=== PATIENT | male | born 1960 | race Two or more races ===

== ENCOUNTER 2020-08-06 11:22 | Emergency (ER) | payer MEDICAID, OTHER ==
[~2020-08-06] VITALS: Ht 167.6 cm; Wt 86.2 kg
[2020-08-06 12:58] VITALS: BP 174/93
[2020-08-06] MEDS ORDERED: HYDROcodone-ACET 5/325MG TAB PO ONE (13:45)
[2020-08-06] MEDS ORDERED: KETOROLAC TROMETH 60MG/2ML VIAL IM ONE (13:45)
== END 2020-08-06 13:59 | disposition home or self-care (01) ==
LOC: ER 11:22
DX: S39.012A Strain of muscle, fascia and tendon of lower back, initial encounter (principal); M51.37 Other intervertebral disc degeneration, lumbosacral region; M54.16 Radiculopathy, lumbar region; G89.29 Other chronic pain; I10 Essential (primary) hypertension; X58.XXXA Exposure to other specified factors, initial encounter; Y93.89 Activity, other specified; Y92.89 Other specified places as the place of occurrence of the external cause; Y99.8 Other external cause status
CPT/HCPCS: 72100; 93005; 96372; 99283; J1885

== ENCOUNTER 2024-05-26 08:26 | Inpatient (IN) | payer MEDICAID ==
[~2024-05-26] VITALS: Ht 167.6 cm; Wt 96.2 kg
[2024-05-26] MEDS: cloNIDine HCL 0.1 MG TAB PO ONE (08:48)
--- NOTE | 2024-05-26 09:06 | DVH ---
EXAM: CT HEAD WITHOUT CONTRAST INDICATION: dizziness TECHNIQUE: CT of the head without intravenous contrast. Radiation Dose : 1. Head: CT Dose: CTDI volume is 55 mGy. Dose-length product is 885 mGy*cm The dose indicators for CT are the volume Computed Tomography (CT) Dose Index (CTDIvol) and the Dose Length Product (DLP), and are measured in units of mGy and mGy-cm, respectively. These indicators are not patient dose, but values generated from the CT scanner acquisition factors. The report includes radiation exposure data for exposures received during this examination. COMPARISON: None FINDINGS: There is no evidence of acute intracranial hemorrhage, extra-axial collection, mass effect, midline s hift, herniation or hydrocephalus. The ventricles, sulci and cisterns are age appropriate. The carey-white differentiation is intact. Patchy periventricular and subcortical white matter hypoattenuation is nonspecific but may be related to small vessel ischemic disease. The visualized paranasal sinuses and mastoid air cells are clear. The surrounding soft tissues and osseous structures are unremarkable. IMPRESSION: No acute intracranial abnormality. Radiation optimization: All CT scans at this facility use at least one of these dose optimization chad hniques: automated exposure control mA and/or kV adjustment per patient size (includes targeted exam s where dose is matched to clinical indication) or iterative reconstruction.
--- NOTE | 2024-05-26 09:19 | ED.PDOC ---
HPI Comments 63 y/o M, with PMHX of HTN presents to the ED for CC of high blood pressure . Patient states, that he has been experiencing high blood pressure readings with associated left arm numbness, dizziness, and headache since 0300 this morning (05/26/24). Patient relays, that he has been non-compliant with blood pressure medications for greater than a year due to adverse affects. Patient comments on, taking x3 Aspirin to try an counteract symptoms; provided no relief. Patient's b lood pressure upon arrival to the ED read at 191/97. Patient denies chest pain, palpations, shortness of breath, or fatigue. No other associated symptoms, modifiers, recent injuries or sick contacts at this time. Chief Complaint: High Blood Pressure Time Seen by MD: 08:20 Primary Care Provider: none Reviewed Notes: Nurses Notes, Medications, Allergies Allergies: Coded Allergies: No Known Drug Allergy (Verified Allergy, Unknown, 08/06/20) Information Source: Patient Mode of Arrival: Ambulatory Severity: Moderate Timing: Days Duration: Since onset Prehospital treatment: None Onset: At Rest Cardiac Risk Factors: HTN PE Risk Factors: None History of: None Modifying Factors: Nothing Associated Signs and Symptoms: None Past Medical History PAST MEDICAL HISTORY: HTN Surgical History: Denies all surgeries Family History Family History: Reviewed,noncontributory to illness Social History Smoker: Non-Smoker Alcohol: Unknown Drugs: Unknown Lives In: Home Constitutional: denies: chills, diaphoresis, fatigue, fever, malaise, sweats, weakness, others EENTM: denies: blurred vision, double vision, ear bleeding, ear discharge, ear drainage, ear pain, ear ringing, eye pain, eye redness, hearing loss, mouth pain, mouth swelling, nasal discharge, nose bleeding, nose congestion, nose pain, photophobia, tearing, throat pain, throat swelling, voice changes, others Respiratory: denies: cough, hemoptysis, orthopnea, SOB at rest, shortness of breath, SOB with excertion, stridor, wheezing, others Cardiovascular: reports: left arm pain; denies: chest pain, dizzy spells, diaphoresis, Dyspnea on exertion, edema, irregular heart beat, lightheadedness, palpitations, PND, syncope, others Gastrointestinal: denies: abdomen distended, abdominal pain, blood streaked bowels, constipated, diarrhea, dysphagia, difficulty swallowing, hematemesis, melena, nausea, poor appetite, poor fluid intake, rectal bleeding, rectal pain, vomiting, others Genitourinary: denies: burning, dysuria, flank pain, frequency, hematuria, incontinence, penile discharge, penile sore, pain, testicle pain, testicle swelling, urgency, others Neurological: reports: dizziness, headache; denies: fainting, left sided numbness, left sided weakness, numbness, paresthesia, pre-existing deficit, right sided numbness, right sided weakness, seizure, speech problems, tingling, tremors, weakness, others Musculoskeletal: denies: back pain, gout, joint pain, joint swelling, muscle pain, muscle stiffness, neck pain, others Integumetry: denies: bruises, change in color, change in hair/nails, dryness, laceration, lesions, lumps, rash, wounds, others Allergic/Immunocompromised: denies: Difficulty Healing, Frequent Infections, Hives, Itching, others Hematologic/Lymphatic: denies: anemia, blood clots, easy bleeding, easy bruising, swollen glands, others Endocrine: denies: excessive hunger, excessive sweating, excessive thirst, excessive urination, flushing, intolerance to cold, intolerance to heat, unexplained weight gain, unexplained weight loss, others Psychiatric: denies: anxiety, bipolar disorder, depression, hopeless, panic disorder, schizophrenia, sleepless, suicidal, others All Other Systems: Reviewed and Negative Physical Exam General Appearance: Moderate Distress HEENT: Normal ENT Inspection, Pharynx Normal, TMs Normal Neck: Full Range of Motion, Non-Tender, Normal, Normal Inspection Respiratory: Chest Non-Tender, Lungs Clear, No Accessory Muscle Use, No Respiratory Distress, Normal Breath Sounds Cardiovascular: No Edema, No JVD, No Murmur, No Gallop, Normal Peripheral Pulses, Regular Rate/Rhythm Breast Exam: Deferred Gastrointestinal: No Organomegaly, Non Tender, No Pulsatile Mass, Normal Bowel Sounds, Soft Genitalia: Deferred Pelvic: Deferred Rectal: Deferred Extremities: No calf tenderness, Normal capillary refill, Normal inspection, Normal range of motion, Non-tender, No pedal edema Musculoskeletal : Apperance: Normal Neurologic: Alert, corrective and manual arts therapist II-XII nml as Tested, No Motor Deficits, Normal Affect, Normal Mood, No Sensory Deficits Cerebellar Function: Normal Reflexes: Normal Skin: Dry, Normal Color, Warm Peripheral Pulses: 3+ Radial (R), 3+ Radial (L) Lymphatic: No Adenopathy Was a procedure done? Was a procedure done?: No CP Differential Dx Differential Diagnosis: A-fib, A-Flutter, Angina, Anxiety / Panic Attack, Atrial Dysrhythmia, Electrolyte Disorder Differential Diagnosis: HTN Essential, HTN Accelerated X-Ray, Labs, Meds, VS Vital Signs Date Time Temp Pulse Resp B/P (MAP) Pulse Ox O2 Delivery O2 Flow Rate FiO2 05/26/24 09:50 140/96 05/26/24 09:47 56 18 95 Room Air* 0 21 05/26/24 09:47 98.1 56 18 140/96 (111) 95 98.1 05/26/24 08:53 54 05/26/24 08:48 213/105 05/26/24 08:38 99.1 55 19 213/105 (141) 98 99.1 Lab Test 05/26/24 09:48 05/26/24 08:58 Range/Units Troponin I High Sensitivity 7 8 </=54 ng/L White Blood Count 6.3 4.4-10.8 10^3/uL Red Blood Count 5.31 4.5-5.90 10^6/uL Hemoglobin 16.3 13.5-17.5 g/dL Hematocrit 47.8 41.0-53.0 % Mean Corpuscular Volume 89.9 80.0-100.0 fL Mean Corpuscular Hemoglobin 30.6 28.0-32.0 pg Mean Corpuscular Hemoglobin Concent 34.0 32.0-36.0 g/dL Red Cell Distribution Width 13.4 11.8-14.3 % Platelet Count 234 140-450 10^3/uL Mean Platelet Volume 8.5 6.9-10.8 fL Neutrophils (%) (Auto) 63.5 37.0-80.0 % Lymphocytes (%) (Auto) 27.8 10.0-50.0 % Monocytes (%) (Auto) 6.1 0.0-12.0 % Eosinophils (%) (Auto) 2.1 0.0-7.0 % Basophils (%) (Auto) 0.5 0.0-2.0 % Neutrophils # (Auto) 4.0 1.6-8.6 10 ^3/uL Lymphocytes # (Auto) 1.7 0.4-5.4 10 ^3/uL Monocytes # (Auto) 0.4 0-1.3 10 ^3/uL Eosinophils # (Auto) 0.1 0-0.8 10 ^3/uL Basophils # (Auto) 0 0-0.2 10 ^3/uL Nucleated Red Blood Cells 0.1 % Sodium Level 142 136-145 mmol/L Potassium Level 4.0 3.5-5.1 mmol/L Chloride Level 105 98-107 mmol/L Carbon Dioxide Level 28 20-31 mmol/L Anion Gap 9 5-15 Blood Urea Nitrogen 13 9-23 mg/dL Creatinine 1.03 0.700-1.30 mg/dL Glomerular Filtration Rate Calc 82 >90 mL/min BUN/Creatinine Ratio 12.6 10.0-20.0 Serum Glucose 124 H 74-106 mg/dL Calcium Level 9.8 8.7-10.4 mg/dL Current Medications Medications (Trade) Dose Ordered Sig/Crystal Route Start Time Stop Time Status Last Admin Clonidine HCl (Catapres Tablet) 0.2 mg ONCE ONCE PO 05/26/24 08:45 05/26/24 08:46 DC 05/26/24 08:48 [place] [id number] Ph: [phone] DIAGNOSTIC IMAGING Diagnostic Imaging Report : [id number] Signed PATIENT: JENNA LIMA ACCT: [id number] UNIT: [id number] : 1960 LOC: ER ROOM / BED: / AGE / SEX: 63 / M ADM STATUS: REG ER SERVICE [id number] ORDERING PHYSICIAN: AUGUSTUS COHEN MD PROCEDURE(s): HWOCT - HEAD WITHOUT CONTRAST REASON: dizziness ORDER NUMBER(s): [id number], ACCESSION NUMBER(s): [id number] EXAM: CT HEAD WITHOUT CONTRAST INDICATION: dizziness TECHNIQUE: CT of the head without intravenous contrast. Radiation Dose : 1. Head: CT Dose: CTDI volume is 55 mGy. Dose-length product is 885 mGy*cm The dose indicators for CT are the volume Computed Tomography (CT) Dose Index (CTDIvol) and the Dose Length Product (DLP), and are measured in units of mGy and mGy-cm, respectively. These indicators are not patient dose, but values generated from the CT scanner acquisition factors. The report includes radiation exposure data for exposures received during this examination. COMPARISON: None FINDINGS: There is no evidence of acute intracranial hemorrhage, extra-axial collection, mass effect, midline shift, herniation or hydrocephalus. The ventricles, sulci and cisterns are age appropriate. The carey-white differentiation is intact. Patchy periventricular and subcortical white matter hypoattenuation is nonspecific but may be related to small vessel ischemic disease. The visualized paranasal sinuses and mastoid air cells are clear. The surrounding soft tissues and osseous structures are unremarkable. IMPRESSION: No acute intracranial abnormality. Radiation optimization: All CT scans at this facility use at least one of these dose optimization techniques: automated exposure control mA and/or kV adjustment per patient size (includes targeted exams where dose is matched to clinical indication) or iterative reconstruction. ATED BY: TRIP BANKS MD DICTATED DATE/TIME: 05/26/24903 SIGNED BY: TRIP BANKS MD SIGNED DATE/TIME: 05/26/24903 CC: [place] [address] Ph: [phone] DIAGNOSTIC IMAGING Diagnostic Imaging Report : [id number] Signed PATIENT: JENNA LIMA ACCT: [id number] UNIT: [id number] : 1960 LOC: ER ROOM / BED: / AGE / SEX: 63 / M ADM STATUS: REG ER SERVICE 0851 ORDERING PHYSICIAN: AUGUSTUS COHEN MD PROCEDURE(s): CXRP - CHEST PORTABLE REASON: sob ORDER NUMBER(s): [id number], ACCESSION NUMBER(s): [id number] CHEST RADIOGRAPH Indication: sob Technique: Single frontal view of the chest was obtained COMPARISON: None FINDINGS: Lines and Tubes: None Lungs: Clear Pleura: No effusion. No pneumothorax. Cardiomediastinal contours: Unremarkable Bones: Unremarkable IMPRESSION: No acute disease. ATED BY: TRIP BANKS MD DICTATED DATE/TIME: 05/26/24915 SIGNED BY: TRIP BANKS MD SIGNED DATE/TIME: 05/26/24915 CC: [place] [address] Ph: [phone] DIAGNOSTIC IMAGING Diagnostic Imaging Report : [id number] Signed PATIENT: JENNA LIMA ACCT: [id number] UNIT: [id number] : 1960 LOC: ER ROOM / BED: / AGE / SEX: 63 / M ADM STATUS: REG ER SERVICE 8 ORDERING PHYSICIAN: AUGUSTUS COHEN MD PROCEDURE(s): HWOCT - HEAD WITHOUT CONTRAST REASON: dizziness ORDER NUMBER(s): [id number], ACCESSION NUMBER(s): [id number] EXAM: CT HEAD WITHOUT CONTRAST INDICATION: dizziness TECHNIQUE: CT of the head without intravenous contrast. Radiation Dose : 1. Head: CT Dose: CTDI volume is 55 mGy. Dose-length product is 885 mGy*cm The dose indicators for CT are the volume Computed Tomography (CT) Dose Index (CTDIvol) and the Dose Length Product (DLP), and are measured in units of mGy and mGy-cm, respectively. These indicators are not patient dose, but values generated from the CT scanner acquisition factors. The report includes radiation exposure data for exposures received during this examination. COMPARISON: None FINDINGS: There is no evidence of acute intracranial hemorrhage, extra-axial collection, mass effect, midline shift, herniation or hydrocephalus. The ventricles, sulci and cisterns are age appropriate. The carey-white differentiation is intact. Patchy periventricular and subcortical white matter hypoattenuation is nonspecific but may be related to small vessel ischemic disease. The visualized paranasal sinuses and mastoid air cells are clear. The surrounding soft tissues and osseous structures are unremarkable. IMPRESSION: No acute intracranial abnormality. Radiation optimization: All CT scans at this facility use at least one of these dose optimization techniques: automated exposure control mA and/or kV adjustment per patient size (includes targeted exams where dose is matched to clinical indication) or iterative reconstruction. ATED BY: TRIP BANKS MD DICTATED DATE/TIME: 05/26/24903 SIGNED BY: TRIP BANKS MD SIGNED DATE/TIME: 05/26/24903 CC: Patient alert. Complaining of headache. Vitals stable. Answering questions. Possible TIA. CT scan of the head reviewed does not show any acute changes. Continues to have symptoms. Possibly need MRI. Reviewed his history. Explained to the patient Continue cardiac monitoring. Blood pressure elevated. Was given clonidine. WBC within normal limits. Hemoglobin within normal limits. EKG reviewed does not show any acute process. Cardiac marker within normal limits. Time of 1ST Reevaluation: 08:50 Reevaluation 1ST: Unchanged Patient Education/Counseling: Diagnosis, Treatment Family Education/Counseling: No Family Present Departure 1 Departure Time of Disposition: 11:09 Impression: Primary Impression: Hypertensive emergency Additional Impression: TIA (transient ischemic attack) Disposition: ADMITTED INPATIENT Admit to: Med Surg Condition: Guarded Critical Care Note Critical Care Time?: No Stability Stability form required: No Heart Score Heart Score: Heart Score Response (Comments) Value History Slightly Suspicious 0 EKG Normal 0 Age 45-64 1 Risk Factors >3 or Hx ASHD 2 Troponin Normal limit 0 Total 3 I personally scribed for AUGUSTUS COHEN MD ([email or web address]) on 05/26/24 at 09:19. Electronically submitted by Maggi Perry ([email or web address]). I personally scribed for AUGUSTUS COHEN MD ([email or web address]) on 05/26/24 at 09:19. Electronically submitted by Maggi Perry ([email or web address]). I personally scribed for AUGUSTUS COHEN MD ([email or web address]) on 05/26/24 at 09:20. Electronically submitted by Maggi Perry ([email or web address]). I personally scribed for AUGUSTUS COHEN MD ([email or web address]) on 05/26/24 at 10:19. Electronically submitted by Maggi Perry ([email or web address]). AUGUSTUS COHEN MD May 26, 2024 09:19
[2024-05-26 09:26] LABS: Basophils # (auto) 0 10 ^3/uL (0-0.2); Basophils % (auto) 0.5 % (0.0-2.0); Eosinophils # (auto) 0.1 10 ^3/uL (0-0.8); Eosinophils % (auto) 2.1 % (0.0-7.0); Hematocrit 47.8 % (41.0-53.0); Hemoglobin 16.3 g/dL (13.5-17.5); Lymphocytes # (auto) 1.7 10 ^3/uL (0.4-5.4); Lymphocytes % (auto) 27.8 % (10.0-50.0); Mean Corpuscular Hemoglobin 30.6 pg (28.0-32.0); Mean Corpuscular Volume 89.9 fL (80.0-100.0); Monocytes # (auto) 0.4 10 ^3/uL (0-1.3); Monocytes % (auto) 6.1 % (0.0-12.0); Neutrophils % (auto) 63.5 % (37.0-80.0); Nucleated Red Blood Cells % 0.1 %; Platelet Count (auto) 234 10^3/uL (140-450); Red Blood Cells 5.31 10^6/uL (4.5-5.90); Red Cell Distribution Width 13.4 % (11.8-14.3); White Blood Cell 6.3 10^3/uL (4.4-10.8)
[2024-05-26 09:29] LABS: Chloride 105 mmol/L (98-107); Sodium 142 mmol/L (136-145)
[2024-05-26 09:30] LABS: Anion Gap 9 (5-15); Carbon Dioxide 28 mmol/L (20-31)
[2024-05-26 09:31] LABS: Calcium 9.8 mg/dL (8.7-10.4)
[2024-05-26 09:35] LABS: BUN/Creatinine Ratio 12.6 (10.0-20.0); Blood Urea Nitrogen 13 mg/dL (9-23)
[2024-05-26 09:36] LABS: Glucose 124 mg/dL (74-106)
[2024-05-26 09:47] VITALS: PULSE 56; RESP 18; O2SAT 95
--- NOTE | 2024-05-26 11:58 | DVHHP2 ---
History of Present Illness Reason for Visit: Hypertension History of Present Illness Juan Diego Garza is a 63-year-old male with past medical history of hypertension who has not been taking any medications for about a year. Patient states he does take his blood pressure at times and today he noticed it was in the 200s prompting him to come to the hospital. He states he does have a primary care provider, but that he has not been in to see them in a couple years. Patient was given an antihypertensive from the ER, he states it has made him sleepy. I explained that is normal, and that his body will need to adjust to having a safer more normal blood pressure. Cardiovascular: HTN Past Surgical History: Appendectomy Family History: None Smoke: No ALCOHOL: none Drugs: None Lives: with Family Domestic Violence: Neg Review of Systems Constitutional: No: Fever, Chills, Sweats, Weakness, Malaise, Other Eyes: No: Pain, Vision change, Conjunctivae inflammation, Eyelid inflammation, Other, Redness ENT: No: Ear pain, Ear discharge, Nose pain, Nose discharge, Nose congestion, Mouth pain, Mouth swelling, Throat pain, Throat swelling, Other Respiratory: No: Cough, Dry, Shortness of breath, SOB with excertion, Wheezing, Hemoptysis, Pleuritic Pain, Sputum, Wheezing, Other Cardiovascular: Other (Hypertension); No: Chest Pain, Palpitations, Orthopnea, Paroxysmal Noc. Dyspnea, Edema, Lt Headedness Gastrointestinal: No: Nausea, Vomiting, Abdominal Pain, Diarrhea, Constipation, Melena, Hematochezia, Other Genitourinary: No Dysuria, No Frequency, No Incontinence, No Hematuria, No Retention, No Other Musculoskeletal: No: other, neck pain, shoulder pain, arm pain, back pain, hand pain, leg pain, foot pain Skin: No: Rash, Lesions, Jaundice, Bruising, Other Neurological: No: Weakness, Numbness, Incoordination, Change in speech, Confusion, Seizures, Other Allergies: Coded Allergies: No Known Drug Allergy (Verified Allergy, Unknown, 08/06/20) Exam Vital Signs Vital Signs Date Time Temp Pulse Resp B/P (MAP) Pulse Ox O2 Delivery O2 Flow Rate FiO2 05/26/24 09:50 140/96 05/26/24 09:47 56 18 95 Room Air* 0 21 05/26/24 09:47 98.1 98.1 General Appearance: Alert, Oriented X3, Cooperative, mild distress HEENT: Atraumatic, PERRLA Respiratory: Clear to auscultation, Normal air movement Cardiovascular: Regular rate, Normal S1, Normal S2, No murmurs Abdominal: Normal bowel sounds, Soft, No tenderness, No hepatospenomegaly Extremities: No clubbing, No cyanosis, No edema, Normal pulses, No tenderness/swelling Skin: No rashes, No breakdown, No significant lesion Neuro: Normal gait, Normal speech, Strength at 5/5 X4 ext, Normal tone Psych/Mental Status: Mental status NL, Mood NL Labs/Xrays Labs Test 05/26/24 09:48 05/26/24 08:58 Range/Units Troponin I High Sensitivity 7 </=54 ng/L White Blood Count 6.3 4.4-10.8 10^3/uL Red Blood Count 5.31 4.5-5.90 10^6/uL Hemoglobin 16.3 13.5-17.5 g/dL Hematocrit 47.8 41.0-53.0 % Mean Corpuscular Volume 89.9 80.0-100.0 fL Mean Corpuscular Hemoglobin 30.6 28.0-32.0 pg Mean Corpuscular Hemoglobin Concent 34.0 32.0-36.0 g/dL Red Cell Distribution Width 13.4 11.8-14.3 % Platelet Count 234 140-450 10^3/uL Mean Platelet Volume 8.5 6.9-10.8 fL Neutrophils (%) (Auto) 63.5 37.0-80.0 % Lymphocytes (%) (Auto) 27.8 10.0-50.0 % Monocytes (%) (Auto) 6.1 0.0-12.0 % Eosinophils (%) (Auto) 2.1 0.0-7.0 % Basophils (%) (Auto) 0.5 0.0-2.0 % Neutrophils # (Auto) 4.0 1.6-8.6 10 ^3/uL Lymphocytes # (Auto) 1.7 0.4-5.4 10 ^3/uL Monocytes # (Auto) 0.4 0-1.3 10 ^3/uL Eosinophils # (Auto) 0.1 0-0.8 10 ^3/uL Basophils # (Auto) 0 0-0.2 10 ^3/uL Nucleated Red Blood Cells 0.1 % Sodium Level 142 136-145 mmol/L Potassium Level 4.0 3.5-5.1 mmol/L Chloride Level 105 98-107 mmol/L Carbon Dioxide Level 28 20-31 mmol/L Anion Gap 9 5-15 Blood Urea Nitrogen 13 9-23 mg/dL Creatinine 1.03 0.700-1.30 mg/dL Glomerular Filtration Rate Calc 82 >90 mL/min BUN/Creatinine Ratio 12.6 10.0-20.0 Serum Glucose 124 H 74-106 mg/dL Calcium Level 9.8 8.7-10.4 mg/dL EXAM: CT HEAD WITHOUT CONTRAST FINDINGS: There is no evidence of acute intracranial hemorrhage, extra-axial collection, mass effect, midline shift, herniation or hydrocephalus. The ventricles, sulci and cisterns are age appropriate. The carey-white differentiation is intact. Patchy periventricular and subcortical white matter hypoattenuation is nonsp ecific but may be related to small vessel ischemic disease. The visualized paranasal sinuses and mastoid air cells are clear. The surrounding soft tissues and osseous structures are unremarkable. IMPRESSION: No acute intracranial abnormality. CHEST RADIOGRAPH FINDINGS: Lines and Tubes: None Lungs: Clear Pleura: No effusion. No pneumothorax. Cardiomediastinal contours: Unremarkable Bones: Unremarkable IMPRESSION: No acute disease. Assessment/Plan Assessment/Plan Assessment: Hypertensive emergency, Hyperglycemia, Medication noncompliance, Plan: Admit to Tele, Antihypertensives, PRN antihypertensives, A1c, Consider Cardiology consult, Plan discussed with: Patient My Orders Orders - SAM LITTLE Procedure Category Date Status Time Admit ADMIT 05/26/24 Verified 11:47 Code Status CODE 05/26/24 Verified 11:47 2 Gm Sodium Diet DIET 05/26/24 Verified Lunch Sodium Chloride Lock PHA 05/26/24 Verified (Saline Lock Ns) 14:00 Hydrocodone-Acet PHA 05/26/24 Verified 5/325mg Tab ([place] 12:00 Ondansetron Hcl PHA 05/26/24 Verified (Zofran) 12:00 Docusate Sodium PHA 05/26/24 Verified Capsule (Colace 12:00 Complete Blood Count LAB 05/27/24 Verified 04:00 Comprehensive LAB 05/27/24 Verified Metabolic Panel 04:00 Echo 2d Mode Cardiac US 05/26/24 Verified DOP 11:47 Condition: Critical [facility] 05/26/24 Verified 11:47 Acetaminophen Tablet [facility] 05/26/24 Verified (Tylenol Tablet) 12:00 Nitroglycerin [facility] 05/26/24 Verified Sublingual (Ntrostat 12:00 Morphine Sulfate [facility] 05/26/24 Verified Injection 12:00 Stat Ekg For Chest [facility] 05/26/24 Verified Pain 11:47 Notify Md Of Changes [facility] 05/26/24 Verified From Base 11:47 Certified Hearing Instrument Dispenser For [facility] 05/26/24 Verified 24 Hours 11:47 Emergency Dysrhythmia [facility] 05/26/24 Verified Protocol 11:47 Rhythm Strips Once [facility] 05/26/24 Verified Every Shift 11:47 Oxygen By Nasal 05/26/24 Verified Cannula 11:47 Hydrochlorothiazide [facility] 05/26/24 Verified Tablet (Hydrochlorot 12:00 Hydrochlorothiazide [facility] 05/27/24 Verified Tablet (Hydrochlorot 10:00 Lisinopril Tablet [facility] 05/27/24 Verified (Zestril Tablet) 10:00 Date of Service: May 26, 2024 Billing Provider: SAM LITTLE Common Visit Codes: [id number] INP/OBS CARE (HIGH) SAM LITTLE May 26, 2024 11:58
[2024-05-26] MEDS ORDERED: DOCUSATE SOD 100 MG CAP PO PRN (12:00)
[2024-05-26] MEDS ORDERED: MORPHINE SULFATE INJ 2 MG/ml SYRG IV PRN (12:00)
[2024-05-26] MEDS ORDERED: HYDROcodone-ACET 5/325MG TAB PO PRN (12:00)
[2024-05-26] MEDS ORDERED: NITROGLYCERIN 0.4 MG SL TAB SL PRN (12:00)
[2024-05-26] MEDS ORDERED: ONDANSETRON HCL 4 MG/2 ML VIAL IV PRN (12:00)
[2024-05-26] MEDS: hydroCHLOROthiazide 25 MG TAB PO ONE (13:16)
[2024-05-26] MEDS: SODIUM CHLOR 0.9% PF (SALINE LOCK) 10ML VIAL/SYR IV SCH (15:48)
[2024-05-26] MEDS ORDERED: hydrALAZINE HCL 20 MG/ML VL IV PRN (17:15)
[2024-05-26 18:33] VITALS: BP 139/80; PULSE 50; RESP 15; TEMP 98.1; O2SAT 97
[2024-05-26 20:00] VITALS: PULSE 50; PULSE 66; RESP 17; O2SAT 97
[2024-05-26 21:00] VITALS: BP 144/80; PULSE 58; RESP 15; TEMP 98.2; O2SAT 97
[2024-05-26] MEDS: ACETAMINOPHEN 325 MG TAB PO PRN (22:56)
[2024-05-27] VITALS (7 sets, daily range): BP systolic 124–155; BP diastolic 81–85; PULSE 51–59; RESP 16–19; TEMP 97.5–98.2; O2SAT 92–98
[2024-05-27] MEDS: MELATONIN 5 MG TAB ONE (01:53)
[2024-05-27 06:47] LABS: Basophils # (auto) 0 10 ^3/uL (0-0.2); Basophils % (auto) 0.6 % (0.0-2.0); Eosinophils # (auto) 0.2 10 ^3/uL (0-0.8); Eosinophils % (auto) 2.3 % (0.0-7.0); Hematocrit 43.9 % (41.0-53.0); Hemoglobin 15.4 g/dL (13.5-17.5); Lymphocytes # (auto) 2.5 10 ^3/uL (0.4-5.4); Mean Corpuscular Hemoglobin 31.5 pg (28.0-32.0); Mean Corpuscular Hgb Conc. 35.1 g/dL (32.0-36.0); Mean Corpuscular Volume 89.9 fL (80.0-100.0); Monocytes # (auto) 0.4 10 ^3/uL (0-1.3); Monocytes % (auto) 5.7 % (0.0-12.0); Neutrophils # (auto) 4.5 10 ^3/uL (1.6-8.6); Neutrophils % (auto) 58.4 % (37.0-80.0); Platelet Count (auto) 223 10^3/uL (140-450); Red Blood Cells 4.88 10^6/uL (4.5-5.90); Red Cell Distribution Width 13.5 % (11.8-14.3); White Blood Cell 7.7 10^3/uL (4.4-10.8)
[2024-05-27 06:57] LABS: Alanine Aminotransferase 39 U/L (7-40); Alkaline Phosphatase 75 U/L (46-116); Anion Gap 11 (5-15); BUN/Creatinine Ratio 15.5 (10.0-20.0); Blood Urea Nitrogen 15 mg/dL (9-23); Calcium 9.4 mg/dL (8.7-10.4); Carbon Dioxide 24 mmol/L (20-31); Chloride 104 mmol/L (98-107); Potassium 3.6 mmol/L (3.5-5.1); Sodium 139 mmol/L (136-145); Total Protein 6.9 g/dL (5.7-8.2)
[2024-05-27 06:58] LABS: Albumin 4.2 g/dL (3.2-4.8); Aspartate Aminotransferase 28 U/L (13-40)
[2024-05-27 07:00] LABS: Bilirubin, Total 1.4 mg/dL (0.2-1.0); Glucose 120 mg/dL (74-106)
[2024-05-27] MEDS: LISINOPRIL 5 MG TAB PO SCH (08:52)
[2024-05-27] MEDS: hydroCHLOROthiazide 25 MG TAB PO SCH (08:52)
--- NOTE | 2024-05-27 15:03 | DVHPN2 ---
Assessment/Plan Assessment/Plan Progress note 63 M with HTN non compliant admitted for hypertensive episode. Physical exam Alert oriented x3 clear breath sound s1 s2 rrr no murmur abdomen soft nontender no le edema labs ekg imaging reviewed assessment and plan hypertensive urgency rule out hypertensive encep obesity predm maintain bp <160/100 start oral anti HTN avoid IV anti htn for asymptomatic hypertension neurocheck echo pending read, wet read looks preserved ekg diet cardiac dvt ppx ambulatory Plan discussed with: Patient Date of Service: May 27, 2024 Billing Provider: PRUDENCE KAN MD Common Visit Codes: [id number] INP/OBS CARE(HIGH) PRUDENCE KAN MD May 27, 2024 15:03
[2024-05-27] MEDS ORDERED: amLODIPine BESYLATE 5 MG TAB PO ONE (15:15)
[2024-05-27] MEDS: LOSARTAN POTASSIUM 25 MG TAB PO ONE (16:57)
--- NOTE | 2024-05-27 17:42 | DVHSR ---
APPROVED REPORT EXAM: Two-dimensional and M-mode echocardiogram with Doppler and color Doppler. Blood Pressure: 140/96 mmHg INDICATION Hypertensive emergency RISK FACTORS Obesity: Height: 5'6", Weight: 206 DIMENSIONS LVDd4.3 (3.8-5.7cm)LA (2D)3.4 (1.9-4.0cm)Aortic Root3.1 (2.0-3.7cm) LVDs3.0 (2.5-4.0cm)LA (MM) (1.9-4.0cm)Aortic Cusp Exc1.7 (1.5-2.0cm) EF (%) 60.0 (55-70%)Rt. Atrium3.4 (1.9-4.0cm)Asc. Aorta cm IVSd1.2 (0.7-1.1cm)RV (D)3.4 (1.8-2.4cm) PWd1.2 (0.7-1.1cm) Mitral Valve MitralMitral Stenosis E wave0.87m/sMV Mean GR.mmHg A wave0.72m/sMV Peak GR.mmHg E/A ratio1.22D MVAcm2 DECEL [id number] 1/2 Timems Aortic Valve Aortic ValveAortic Stenosis V11.00m/Pat Mean GR.6mmHg V21.66m/Pat Peak GR.11mmHg LVOT Diameter1.8 (1.8-2.4cm)Doppler AVA1.53cm2 Conclusion Sinus bradycardia. Concentric LVH and left atrial enlargement. Valves are normal. Left ventricular function is normal at 60% with normal RV function. Dopplers unremarkable. No pericardial effusion masses or vegetations.
--- NOTE | 2024-05-27 18:47 | ECG ---
[facility] Test Date: 2024-05-26 Test Time: 08:53:00 Pat Name: JENNA LIMA Department: ER Room: 0296T B Gender: M Commissary Manager: CHARLIE : 1960 Requested By: AUGUSTUS COHEN Order Number: [id number] Reading MD: Memo Rome Measurements Intervals [place] Rate: 54 P: 65 [place]: 167 QRS: 82 QRSD: 110 T: 53 QT: 432 QTc: 410 Interpretive Statements Sinus rhythm Probable anterior infarct, old Electronically Signed On 05-28-2024 14:02:02 PDT by Memo Rome Please click the below link to view image of tracing.
[2024-05-27] MEDS: MELATONIN 5 MG TAB PO ONE (23:00)
[2024-05-28 01:00] VITALS: BP 110/77; PULSE 56; RESP 18; TEMP 98.3; O2SAT 97
[2024-05-28 08:00] VITALS: PULSE 51
[2024-05-28 08:15] VITALS: RESP 18; O2SAT 97
[2024-05-28 09:00] VITALS: BP 116/73; PULSE 60; RESP 16; TEMP 98; O2SAT 98
[2024-05-28] MEDS: LOSARTAN POTASSIUM 25 MG TAB PO SCH (09:35)
[2024-05-28] MEDS: hydroCHLOROthiazide 25 MG TAB PO SCH (09:37)
[2024-05-28] MEDS ORDERED: amLODIPine BESYLATE 5 MG TAB PO SCH (10:00)
--- NOTE | 2024-05-28 12:33 | DVHDS2 ---
Discharge Summary Date of Admission May 26, 2024 at 11:47 Date of Discharge: May 28, 2024 Labs/Diagnostic Data: Laboratory Results Test 05/27/24 05:36 05/26/24 09:48 White Blood Count 7.7 10^3/uL (4.4-10.8) Red Blood Count 4.88 10^6/uL (4.5-5.90) Hemoglobin 15.4 g/dL (13.5-17.5) Hematocrit 43.9 % (41.0-53.0) Mean Corpuscular Volume 89.9 fL (80.0-100.0) Mean Corpuscular Hemoglobin 31.5 pg (28.0-32.0) Mean Corpuscular Hemoglobin Concent 35.1 g/dL (32.0-36.0) Red Cell Distribution Width 13.5 % (11.8-14.3) Platelet Count 223 10^3/uL (140-450) Mean Platelet Volume 8.9 fL (6.9-10.8) Neutrophils (%) (Auto) 58.4 % (37.0-80.0) Lymphocytes (%) (Auto) 33.0 % (10.0-50.0) Monocytes (%) (Auto) 5.7 % (0.0-12.0) Eosinophils (%) (Auto) 2.3 % (0.0-7.0) Basophils (%) (Auto) 0.6 % (0.0-2.0) Neutrophils # (Auto) 4.5 10 ^3/uL (1.6-8.6) Lymphocytes # (Auto) 2.5 10 ^3/uL (0.4-5.4) Monocytes # (Auto) 0.4 10 ^3/uL (0-1.3) Eosinophils # (Auto) 0.2 10 ^3/uL (0-0.8) Basophils # (Auto) 0 10 ^3/uL (0-0.2) Nucleated Red Blood Cells 0.0 % Sodium Level 139 mmol/L (136-145) Potassium Level 3.6 mmol/L (3.5-5.1) Chloride Level 104 mmol/L (98-107) Carbon Dioxide Level 24 mmol/L (20-31) Anion Gap 11 (5-15) Blood Urea Nitrogen 15 mg/dL (9-23) Creatinine 0.97 mg/dL (0.700-1.30) Glomerular Filtration Rate Calc 88 mL/min (>90) BUN/Creatinine Ratio 15.5 (10.0-20.0) Serum Glucose 120 mg/dL (74-106) Hemoglobin A1c 5.8 % A1C (<5.7) Calcium Level 9.4 mg/dL (8.7-10.4) Total Bilirubin 1.4 mg/dL (0.2-1.0) Aspartate Amino Transferase (AST) 28 U/L (13-40) Alanine Aminotransferase (ALT) 39 U/L (7-40) Alkaline Phosphatase 75 U/L (46-116) Total Protein 6.9 g/dL (5.7-8.2) Albumin 4.2 g/dL (3.2-4.8) Troponin I High Sensitivity 7 ng/L (</=54) Other Laboratory Tests 05/27/24 05:36 Brief Hx & Hospital Course: Juan Diego Garza is a 63-year-old male with past medical history of hypertension who has not been taking any medications for about a year. Patient states he does take his blood pressure at times and today he noticed it was in the 200s prompting him to come to the hospital. He states he does have a primary care provider, but that he has not been in to see them in a couple years. Patient was given an antihypertensive from the ER, he states it has made him sleepy.started on hctz and losartan, bp more controlled, does not require IV at this point, symptom resolved. [facility]. Condition at Discharge: Good Final Diagnosis/Problems List hypertensive urgency HTN encep ruled out obesity predm Discharge Disposition: Home 39 Discharge Statement: "Patient was advised to return to the ER or call 911 if any headaches, dizziness, shortness of breath, chest pain, abdominal pain, bleeding, fevers, or worsening of medical condition. Patient was counseled about treatment plan, medications, possible side effects, patientverbalized understanding. All questions were answered to the best of my ability. This discharge took greater then 30 minutes in planning, reviewing documentation, counseling the patient, and discussing with other team members." ASSESSMENT ASSESSMENT Assessment Date of Service: May 28, 2024 Billing Provider: PRUDENCE KAN MD Common Visit Codes: 15993-[facility]/OBS DISCH DAY >30min PRUDENCE KAN MD May 28, 2024 12:33
[2024-05-28] MEDS ORDERED: LOS25T PO (12:34)
[2024-05-28] MEDS ORDERED: HYDR25TA5 PO (12:34)
[2024-05-28 13:00] VITALS: BP 109/73; PULSE 54; RESP 15; TEMP 98; O2SAT 94
== END 2024-05-28 14:13 | disposition home or self-care (01) | DRG 199 ==
LOC: ER 08:26 → OVERFLOW 11:47 → TELE-WESTW 18:44
PROVIDERS: ADMIT Student in an Organized Health Care Education/Training Program; ATTEND Student in an Organized Health Care Education/Training Program
DX: I16.0 Hypertensive urgency (principal); E66.9 Obesity, unspecified; I10 Essential (primary) hypertension; R73.03 Prediabetes; R73.9 Hyperglycemia, unspecified; Z91.148 Patient's other noncompliance with medication regimen for other reason; Z90.49 Acquired absence of other specified parts of digestive tract; Z68.34 Body mass index [BMI] 34.0-34.9, adult
CPT/HCPCS: 36415; 70450; 71045; 80048; 80053; 83036; 84484; 85025; 93005; 93306; 96360; G0378